=== PATIENT | male | born 1990 | race Caucasian/White ===

== ENCOUNTER 2016-06-18 11:46 | Emergency (ER) | payer MEDICAID ==
[2016-06-18 11:51] VITALS: RESP 18; TEMP 98.2; O2SAT 96
--- NOTE | 2016-06-18 12:09 | EDPHY ---
General Narrative: CHIEF COMPLAINT: Sore throat, body aches HISTORY OF PRESENT ILLNESS: one-week history of sore throat, body aches, malaise, chills. quit smoking 3 weeks ago when the symptoms started after this. It started with a sore throat, body aches and cough. Those resolved and then returned a week ago. He has no cough or congestion at this time. No sinus tenderness. No headache. Chills but no fever. No abdominal pain. He does feel very tired all the time. No urinary complaints. Has history of mono in the past. No hoarseness. He does have some pain in the back for the makes it hard to swallow difficulty breathing. No other associated complaints or modifying factors. REVIEW OF SYSTEMS: Ten systems reviewed and are negative unless otherwise noted in the HPI EXAMINATION General Appearance: Alert, no distress Head: normocephalic, atraumatic Eyes: Pupils equal and round, no conjunctival pallor or injection . EOMs intact. ENT, Mouth: Mucous membranes moist . Mild posterior erythema. No edema. No asymmetry. Uvula is midline. No abscess. Floor of the mouth is normal. Neck: Normal inspection, supple, non-tender Respiratory: Lungs are clear to auscultation . Clear to auscultation. No wheezing, rhonchi or crackles. Cardiovascular: Regular rate and rhythm . No murmur. Pulses intact distally symmetrically. Gastrointestinal: Abdomen is soft and nontender . No tympany. No splenomegaly. No CVA tenderness. Neurological: A&O, nonfocal, normal gait Skin: Warm and dry, no rash Extremities: Nontender, no pedal edema Psychiatric: Mood and affect normal DIFFERENTIAL DIAGNOSES: Including but not limited to Viral pharyngitis, bacterial pharyngitis, mono, influenza, viral illness MDM: 12:07 p.m. acute pharyngitis with recent chronic pharyngitis. There is no abscess. There is some erythema of the posterior pharynx without any edema or asymmetry. The uvula is midline. Floor of the mouth is normal. Rapid strep test and influenza tests have been ordered. The patient also has a history of mono, and this may be an Samuel Hunter virus flare. Vital signs are stable and he is in no acute distress. 1:01 p.m. pharyngitis with negative rapid strep test and negative flu. No evidence of abscess. No compromise of the airway. Discharged home with thromax, Decadron and pain medication as needed. Follow up with [facility] and primary care physician for further care. Return to the ER for worsening pain, asymmetry of the throat, or asymmetry of the uvula. Patient is comfortable with this plan SUPERVISION: This patient was independently evaluated without the aide of supervising physician. - History Smoking Status: Heavy smoker - Objective Vital Signs: Initial Vital Signs Temperature (C) 98.2 F 06/18/16 11:48 Heart Rate 78 06/18/16 11:48 Respiratory Rate 18 06/18/16 11:48 Blood Pressure 129/59 H 06/18/16 11:48 O2 Sat (%) 96 06/18/16 11:48 O2 Delivery Mode Room Air Allergies/Adverse Reactions: No Known Allergies Allergy (Unverified 06/18/16 11:51) Home Medications: Medication Instructions Recorded Acetaminophen/Codeine 300/30Mg 1 each PO Q6 PRN #15 tab 06/18/16 [Tylenol #3 (*)] Azithromycin [Zithromax] 250 mg PO DAILY #6 tab 06/18/16 Dexamethasone [Decadron 4 MG (*)] 8 mg PO DAILY #2 tab 06/18/16 Laboratory Results: 06/18/16 06/18/16 06/18/16 Unknown 12:24 12:24 Influenza Typ A,B (DFA) NEGATIVE FOR FLU (NEGATIVE) Group A Strep Screen NEGATIVE (NEGATIVE) Group A Strep DNA Pending Departure - Departure Disposition: Home, Routine, Self-Care Clinical Impression: Acute pharyngitis Qualifiers: Pharyngitis/tonsillitis etiology: unspecified etiology Qualified Code(s): J02.9 - Acute pharyngitis, unspecified Condition: Good Instructions: Pharyngitis (ED) Additional Instructions: Follow-up with primary care physician or Nose and Throat for definitive care. Return to the ER for hoarseness, difficulty swallowing fever or worsening pain Referrals: Vasile Maya MD [Medical Doctor] - As per Instructions NONE *PRIMARY CARE P,. [Primary Care Provider] - As per Instructions Myke Baig MD [Medical Doctor] - As per Instructions Prescriptions: Acetaminophen/Codeine 300/30Mg [Tylenol #3 (*)] 1 each PO Q6 PRN #15 tab PRN Reason: Pain, Mild Azithromycin [Zithromax] 250 mg PO DAILY #6 tab Dexamethasone [Decadron 4 MG (*)] 8 mg PO DAILY #2 tab
[2016-06-18 13:22] VITALS: BP 104/68; PULSE 56
== END 2016-06-18 13:22 | disposition home or self-care (01) ==
DX: J02.9 Acute pharyngitis, unspecified (principal); F17.200 Nicotine dependence, unspecified, uncomplicated